=== PATIENT | female | born 1935 | race Caucasian/White ===

== ENCOUNTER 2016-05-06 13:13 | Emergency (ER) | payer OTHER ==
[2016-05-06 13:33] VITALS: BMI 26.6
--- NOTE | 2016-05-06 14:50 | PDOC ---
History of Present Illness <Raghav Dominguez - Last Filed: 05/06/16 14:50> - History of Present Illness Initial Comments: 05/06/16 15:03 The patient is an 81 year old female who presents to the ED for evaluation of shortness of breath. The patient reports she saw her PCP two day ago for her shortness of breath and was informed she has a mucus plug in her lung. She reports she is still having SOB since seeing her PCP. She denies any associated fever, chills, nausea, vomiting. The patient denies a hx of CHF or asthma. She states she got the flu and pneumonia shot this year. 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 Social: No toxic habits reported Surgical: TKR left knee, appendectomy, cardiac surgery: angioplasty (no stents) PCP: N/A <Shayla Allen - Last Filed: 05/06/16 15:48> <Anaya Carroll - Last Filed: 05/07/16 20:11> - General Chief Complaint: Respiratory Stated Complaint: PAIN Past History - Past Medical History Cardiac Disorders: Yes (CAD) HTN: Yes Hypercholesterolemia: Yes Other medical history: ARITHRITIS - Surgical History Appendectomy: Yes Cardiac Surgery: Yes (ANGIOPLASTY NO STENTS) - Psycho/Social/Smoking Cessation Hx Anxiety: No Suicidal Ideation: No Smoking History: Never smoked Have you smoked in the past 12 months: No Information on smoking cessation initiated: No Hx Alcohol Use: No Drug/Substance Use Hx: No Substance Use Type: None <Raghav Dominguez - Last Filed: 05/06/16 14:50> <Shayla Allen - Last Filed: 05/06/16 15:48> <Anaya Carroll - Last Filed: 05/07/16 20:11> - Past Medical History Allergies/Adverse Reactions: Allergies Allergy/AdvReac Type Severity Reaction Status Date / Time No Known Allergies Allergy Verified 05/06/16 13:24 Home Medications: Ambulatory Orders Aspirin [ASA -] 81 mg PO DAILY 05/06/16 Metoprolol Tartrate 75 mg PO BID 05/06/16 Nitroglycerin Patch [Nitro-Dur] 0.2 mg TD DAILY 05/06/16 Pravastatin Sodium [Pravachol] 40 mg PO HS 05/06/16 Review of Systems - Review of Systems Able to Perform ROS?: Yes Comments:: 05/06/16 15:04 CONSTITUTIONAL: Absent: fever, chills, diaphoresis, generalized weakness, malaise, loss of appetite HEENT: Absent: rhinorrhea, nasal congestion, throat pain, throat swelling, difficulty swallowing, mouth swelling, ear pain, eye pain, visual Changes CARDIOVASCULAR: Absent: chest pain, syncope, palpitations, irregular heart rate, lightheadedness , peripheral edema RESPIRATORY: +Shortness of breath. Absent: cough, orthopnea, wheezing, stridor, hemoptysis GASTROINTESTINAL: Absent: abdominal pain, abdominal distension, nausea, vomiting, diarrhea, constipation, melena, hematochezia GENITOURINARY: Absent: dysuria, frequency, urgency, hesitancy, hematuria, flank pain, genital pain MUSCULOSKELETAL: Absent: myalgia, arthralgia, joint swelling SKIN: Absent: rash, itching, pallor HEMATOLOGIC/IMMUNOLOGIC: Absent: easy bleeding, easy bruising, lymphadenopathy, frequent infections ENDOCRINE: Absent: unexplained weight gain, unexplained weight loss, heat intolerance, cold intolerance NEUROLOGIC: Absent: headache, focal weakness or paresthesias, dizziness, unsteady gait, seizure, mental status changes, bladder or bowel incontinence PSYCHIATRIC: Absent: anxiety, depression, suicidal or homicidal ideation, hallucinations. <Shayla Allen - Last Filed: 05/06/16 15:48> *Physical Exam - Vital Signs Last Vital Signs Temp Pulse Resp BP Pulse Ox 97.5 F L 82 18 100/80 95 05/06/16 13:25 05/06/16 13:25 05/06/16 13:25 05/06/16 13:25 05/06/16 13:25 <Raghav Dominguez - Last Filed: 05/06/16 14:50> - Vital Signs Last Vital Signs Temp Pulse Resp BP Pulse Ox 97.5 F L 82 18 100/80 95 05/06/16 13:25 05/06/16 13:25 05/06/16 13:25 05/06/16 13:25 05/06/16 13:25 - Physical Exam Comments: 05/06/16 15:04 Well developed, well nourished. Awake and alert. In no acute distress. HEENT: Normocephalic, atraumatic. PERRLA, EOMI. No conjunctival pallor. Sclera are non- icteric. Moist mucous membranes. Oropharynx is clear. NECK: Supple. Full ROM. No JVD. Carotid pulses 2+ and symmetric, without bruits. No thyromegaly. No lymphadenopathy. CARDIOVASCULAR: Regular rate and rhythm. No murmurs, rubs, or gallops. Distal pulses are 2+ and symmetric. PULMONARY: No evidence of respiratory distress. Lungs clear to auscultation bilaterally. No wheezing, rales or rhonchi. ABDOMINAL: Soft. Non-tender. Non-distended. No rebound or guarding. No organomegaly. Normoactive bowel sounds. MUSCULOSKELETAL Normal range of motion at all joints. No bony deformities or tenderness. No CVA tenderness. EXTREMITIES: +Bilateral lower extremity edema. No cyanosis. No clubbing. No calf tenderness. SKIN: Warm and dry. Normal capillary refill. No rashes. No jaundice. NEUROLOGICAL: Alert, awake, appropriate. Cranial nerves 2-12 intact. No deficits to light touch and temperature in face, upper extremities and lower extremities. No motor deficits in the in face, upper extremities and lower extremities. Normoreflexic in the upper and lower extremities. Normal speech. Toes are downgoing bilaterally. Gait is normal without ataxia. PSYCHIATRIC: Cooperative. Good eye contact. Appropriate mood and affect. <Shayla Allen - Last Filed: 05/06/16 15:48> - Vital Signs Last Vital Signs Temp Pulse Resp BP Pulse Ox 97.4 F L 77 20 115/69 94 L 05/06/16 18:17 05/06/16 18:17 05/06/16 18:17 05/06/16 18:17 05/06/16 18:17 <Anyaa Carroll - Last Filed: 05/07/16 20:11> ED Treatment Course - LABORATORY CBC & Chemistry Diagram: 05/06/16 15:00 05/06/16 15:00 - RADIOLOGY Radiograph Interpretation: 05/06/16 15:48 Chest X-Ray Imaging reveals scoliosis with degenerative changes and wedging, some prominence sclerotic knob, normal maura and prominent heart. There is mitral annulus calcification. The lungs are clear. The angles are sharp. There is some linear scarring or atelectasis in the right upper lobe. Since the prior study of 04/22/2009, the cardiac silhouette is slightly smaller. The scarring in the right upper lobe is again noted. Impression: No acute pathology. Mitral annulus calcification. Right upper lobe scarring. Reported By: Julian Davalos MD 05/06/16 1524 <Shayla Allen - Last Filed: 05/06/16 15:48> - LABORATORY CBC & Chemistry Diagram: 05/06/16 15:00 05/06/16 15:00 - ADDITIONAL ORDERS Additional order review: Laboratory Results 05/06/16 05/06/16 05/06/16 15:00 15:00 15:00 INR 1.04 PTT (Actin FS) 30.4 D-Dimer 889 H Sodium Potassium Chloride Carbon Dioxide Anion Gap BUN Creatinine Creat Clearance w eGFR Random Glucose Calcium Total Bilirubin AST ALT Alkaline Phosphatase Creatine Kinase Troponin I B-Natriuretic Peptide 2854.73 H Total Protein Albumin 05/06/16 15:00 INR PTT (Actin FS) D-Dimer Sodium 139 Potassium 4.6 Chloride 103 Carbon Dioxide 28 Anion Gap 8 BUN 16 Creatinine 0.8 Creat Clearance w eGFR > 60 Random Glucose 90 Calcium 8.5 Total Bilirubin 0.4 AST 21 ALT 17 Alkaline Phosphatase 93 Creatine Kinase 51 Troponin I < 0.02 B-Natriuretic Peptide Total Protein 7.0 Albumin 3.5 05/06/16 15:00 RBC 4.23 MCV 90.0 MCHC 32.8 RDW 14.7 MPV 7.4 L Neutrophils % 70.3 Lymphocytes % 16.0 Monocytes % 8.8 Eosinophils % 3.9 Basophils % 1.0 <Anaya Carroll - Last Filed: 05/07/16 20:11> Medical Decision Making - Medical Decision Making 05/06/16 19:57 Patient Name: Jenny Clayton THIS IS A PRELIMINARY REPORT FROM [facility] EXAM: CT Angiogram (CTA) Chest w IMAGES: 710 EXAM DATE AND TIME: 2016-05-06 18 :28:11.0 REASON FOR EXAM : Pulmonary embolus. COMPARISON: None. TECHNIQUE: CT Angiogram (CTA) Chest: with I.V. contrast: Thin cut axial images were obtained during the administration of non-ionic iodinated IV contrast. Coronal and sagittal thin and thick slice MIP reformatted images were also generated. 75 cc of Omnipaque. FINDINGS: The soft tissues of the lower neck appear unremarkable. The thyroid glands are normal in size and contour. The tracheobronchial airways are patent. There is no evidence of axillary or mediastinal adenopathy. There are no pulmonary parenchymal masses or nodules. There is moderate atelectasis, pleural and pulmonary parenchymal scarring at the medial segment of the right middle lobe and posterior basal segment of the left lower lobe. The lungs are otherwise clear without evidence of infiltrate or pleural effusion. The pulmonary arteries are patent to their fifth and sixth generation segmental and subsegmental branches, without evidence of filling defect or pulmonary embolus. There is a moderate cardiomegaly. There are multiple scatteredatherosclerotic mural calcifications in the left coronary artery and thoracic aorta ascending, arch or descending segments. Osseous structures exhibit grossly normal mineralization without evidence of lytic or sclerotic lesions. The thoracic vertebral body heights and alignments are well maintained. There is a moderately large hiatal hernia, with the gastric cardia extending up to the level of the lower left hilum. There is marked atrophy of the right kidney, with an extrarenal pelvis. There is hypertrophy of the left kidney. There is no evidence of nephrolithiasis. The remaining imaged upper abdominal organs are normal IMPRESSION: Moderate atelectasis, pleural and pulmonary parenchymal scarring at the medial segment of the right middle lobe and posterior basal segment of the left lower lobe. Moderately large hiatal hernia, with the gastric cardia extending up to the level of the lower left hilum. Marked atrophy of the right kidney, with an extrarenal pelvis. Hypertrophy of the left kidney. The study is otherwise unremarkable: No evidence of pulmonary embolus, infiltrate, pleural effusion or pulmonary nodule. . THIS DOCUMENT HAS BEEN ELECTRONICALLY SIGNED 05/06/16 20:26 Pt states that she never went to the PMD for SOB, rather for cough. She has no fever and she is feeling better. Ddimer positive, but she has no PE. CT demonstrates large hiatal hernia. 05/07/16 20:10 Pt feels much better and reassured that her cough is nothing serious. She understands that she needs to follow with her PMD and with surgery to follow her hiatal hernia. <Anaya Carroll - Last Filed: 05/07/16 20:11> *DC/Admit/Observation/Transfer <Raghav Dominguez - Last Filed: 05/06/16 14:50> - Attestations Scribe Attestion: 05/06/16 15:04 Documentation prepared by Shayla Allen, acting as medical device sales consultant for Raghav Dominguez MD <Shayla Allen - Last Filed: 05/06/16 15:48> - Discharge Dispostion Admit: No <Anaya Carroll - Last Filed: 05/07/16 20:11> Diagnosis at time of Disposition: Hiatal hernia, Cough - Discharge Dispostion Disposition: HOME Condition at time of disposition: Stable - Referrals Referrals: Ankit Gomez MD [Staff Physician] - - Patient Instructions Printed Discharge Instructions: DI for Hiatal Hernia
[2016-05-06 15:10] LABS: EOSINOPHIL 3.9 % (0-4.5); MCH 29.5 pg (25.7-33.7); MCHC 32.8 g/dl (32.0-36.0); MEAN PLT VOLUME 7.4 fl (7.5-11.1); NEUTROPHILS 70.3 % (42.8-82.8); PLATELET COUNT 279 K/MM3 (134-434); RDW 14.7 % (11.6-15.6); WHITE BLOOD COUNT 6.3 K/mm3 (4.0-10.0)
[2016-05-06 15:26] LABS: ALBUMIN 3.5 g/dl (3.4-5.0); ANION GAP 8 (8-16); CALCIUM 8.5 mg/dL (8.5-10.1); CO2 28 mmol/L (21-32); GLUCOSE,RANDOM 90 mg/dL (74-106)
[2016-05-06 15:29] LABS: BILIRUBIN,TOTAL 0.4 mg/dL (0.2-1.0); CREATININE 0.8 mg/dL (0.55-1.02); SGPT/ALT 17 U/L (12-78)
[2016-05-06 15:32] LABS: ALK PHOS 93 U/L (45-117); TROPONIN I < 0.02 ng/ml (0.00-0.05)
[2016-05-06 15:35] LABS: SGOT/AST 21 U/L (15-37)
[2016-05-06 15:52] LABS: INR 1.04 (0.82-1.09); PROTHROMBIN TIME (PATIENT) 11.4 SEC (9.98-11.88)
[2016-05-06 15:55] LABS: ACTIVATED PTT 30.4 SECONDS (26.9-34.4)
[2016-05-06 18:17] VITALS: BP 115/69; PULSE 77; TEMP 97.4
--- NOTE | 2016-05-08 00:46 | EKG ---
Test Reason : Blood Pressure : / mmHG Vent. Rate : 070 BPM Atrial Rate : 070 BPM P-R Int : 000 ms QRS Dur : 078 ms QT Int : 384 ms P-R-T Axes : 057 -10 024 degrees QTc Int : 414 ms SINUS RHYTHM WITH PREMATURE SUPRAVENTRICULAR COMPLEXES AND WITH OCCASIONAL PREMATURE VENTRICULAR COMPLEXES OTHERWISE NORMAL ECG NO PREVIOUS ECGS AVAILABLE Confirmed by MARAL ROMAN MD ([id number]) on 05/08/2016 12:46:06 AM Referred By: Confirmed By:MARAL ROMAN MD
== END 2016-05-06 21:09 | disposition home or self-care (01) ==
LOC: JERFT 13:13 → JER 13:13
DX: K44.9 Diaphragmatic hernia without obstruction or gangrene (principal); R05 Cough; I25.10 Atherosclerotic heart disease of native coronary artery without angina pectoris; Z98.61 Coronary angioplasty status; I10 Essential (primary) hypertension
CPT/HCPCS: 36415; 71020-TC; 71275-TC; 80053; 82550; 83880; 84484; 85025; 85379; 85610; 85730; 93005; 93010; 99283-25